=== PATIENT | male | born 1975 | race Caucasian/White ===

== ENCOUNTER 2019-11-26 14:24 | Outpatient (CLI) | payer OTHER ==
[2019-11-26] MEDS ORDERED: None per pt (14:47)
[2019-11-26 15:20] LABS: BASOPHILS # (AUTO) 0.06 x10^3/uL (0-0.1); BASOPHILS % (AUTO) 1 % (0-1); EOSINOPHILS # (AUTO) 0.28 x10^3/uL (0-0.4); EOSINOPHILS % (AUTO) 3 % (1-7); LYMPHOCYTES # (AUTO) 2.82 x10^3/uL (1-3.4); LYMPHOCYTES % (AUTO) 27 % (22-44); MD NO; MEAN CORPUSCULAR HEMOGLOBIN 30.6 pg (27.5-34.5); MEAN CORPUSCULAR HGB CONC 33.6 g/dL (33.2-36.2); MEAN PLATELET VOLUME 8.8 fL (7.4-10.4); MONOCYTES # (AUTO) 0.48 x10^3/uL (0.2-0.8); MONOCYTES % (AUTO) 5 % (2-9); NEUTROPHILS % (AUTO) 66 % (42-75); PLATELET COUNT 199 x10^3/uL (130-400); RED BLOOD COUNT 5.36 x10^6/uL (4.38-5.82); RED CELL DISTRIBUTION WIDTH 11.9 % (9.4-14.8)
[2019-11-26 15:27] LABS: ALANINE AMINOTRANSFERASE 50 U/L (12-78); ANION GAP 6 mmol/L (5-15); CHLORIDE 107 mmol/L (98-107); CREATININE 1.01 mg/dL (0.7-1.3)
[2019-11-26 15:29] LABS: ALKALINE PHOSPHATASE 87 U/L (45-117); BILIRUBIN,TOTAL 0.4 mg/dL (0.2-1.0); TOTAL PROTEIN 7.1 g/dL (6.4-8.2)
== END 2019-11-26 23:59 | disposition home or self-care (01) ==
LOC: STAR 14:24
PROVIDERS: ATTEND Surgery
DX: K40.90 Unilateral inguinal hernia, without obstruction or gangrene, not specified as recurrent (principal); Z01.818 Encounter for other preprocedural examination
CPT/HCPCS: 36415; 71046; 80053; 85025

== ENCOUNTER 2019-12-04 09:58 | Day surgery (SDC) | payer OTHER ==
[2019-11-26 14:47] VITALS: BP 110/80
[~2019-12-04] VITALS: Ht 182.9 cm; Wt 91.7 kg
[~2019-12-04 09:58] MED LIST: None per pt
[2019-12-04] MEDS ORDERED: LACTATED RINGERS 1,000 ML IV SCH (10:25)
[2019-12-04] MEDS ORDERED: LIDOCAINE-MPF 1%, 2ML ONE (10:26)
[2019-12-04] MEDS ORDERED: ACETAMINOPHEN 500 MG TABLET PO ONE (10:30)
[2019-12-04] MEDS ORDERED: DIAZEPAM 5 MG TABLET PO ONE (10:30)
[2019-12-04] MEDS ORDERED: GABAPENTIN 300 MG CAPSULE PO ONE (10:30)
[2019-12-04] MEDS ORDERED: ONDANSETRON ODT 8 MG PO ONE (10:30)
[2019-12-04] MEDS ORDERED: BUPIVACAINE/PF 0.5% ONE (10:51)
[2019-12-04] MEDS ORDERED: FENTANYL PF 250 MCG/5ML ONE (11:48)
[2019-12-04] MEDS ORDERED: PROPOFOL 50 ML ONE (11:48)
[2019-12-04] MEDS ORDERED: MIDAZOLAM 1 MG/ML, 2ML ONE (11:48)
[2019-12-04] MEDS ORDERED: DEXAMETHASONE 4 MG/ML, 1ML ONE (12:52)
[2019-12-04] MEDS ORDERED: ROCURONIUM 10MG/ML,5ML ONE (12:52)
[2019-12-04] MEDS ORDERED: ONDANSETRON 2MG/ML, 2ML ONE (12:52)
[2019-12-04] MEDS ORDERED: SUCCINYLCHOLINE 20 MG/ML, 10ML ONE (12:52)
[2019-12-04] MEDS ORDERED: PROPOFOL 10 MG/ML, 20ML ONE (12:53)
[2019-12-04] MEDS ORDERED: METOPROLOL 1 MG/ML, 5ML IV PRN (13:00)
[2019-12-04] MEDS ORDERED: MORPHINE SULFATE 4 MG/ML, 1ML IVPush PRN (13:00)
[2019-12-04] MEDS ORDERED: MEPERIDINE/PF 25MG/ML,1ML IVPush PRN (13:00)
[2019-12-04] MEDS ORDERED: DIAZEPAM 5 MG/ML, 2ML IVPush PRN (13:00)
[2019-12-04] MEDS ORDERED: hydrALAzine 20 MG/ML, 1ML IV PRN (13:00)
[2019-12-04] MEDS ORDERED: MIDAZOLAM 1 MG/ML, 2ML IV PRN (13:00)
[2019-12-04] MEDS ORDERED: EPHEDRINE 50 MG/ML, 1ML IM PRN (13:00)
[2019-12-04] MEDS ORDERED: ONDANSETRON ODT 8 MG PO PRN (13:00)
[2019-12-04] MEDS ORDERED: PROMETHAZINE 25 MG/ML, 1ML IV PRN (13:00)
[2019-12-04] MEDS ORDERED: DIPHENHYDRAMINE 50 MG/ML, 1ML IVPush PRN (13:00)
[2019-12-04] MEDS ORDERED: EPHEDRINE 50 MG/ML, 1ML IVPush PRN (13:00)
[2019-12-04] MEDS ORDERED: ONDANSETRON 2MG/ML, 2ML IV PRN (13:00)
[2019-12-04] MEDS ORDERED: FENTANYL PF 100 MCG/2ML ONE (14:12)
[2019-12-04] MEDS ORDERED: OXYcodone 5 MG/5 ML ORAL.SOL UDC ONE (14:12)
[2019-12-04] MEDS: FENTANYL PF 100 MCG/2ML IV PRN ×3 (14:17→14:34)
[2019-12-04] MEDS: OXYcodone 5 MG/5 ML ORAL.SOL UDC PO PRN ×2 (14:18→15:08)
[2019-12-04] MEDS ORDERED: IBUPROFEN 600 MG TABLET PO SCH (15:30)
[2019-12-04] MEDS ORDERED: KETOROLAC 30 MG/1 ML ONE (17:32)
[2019-12-04] MEDS ORDERED: CEFAZOLIN 1,000 MG ONE (17:32)
== END 2019-12-04 16:15 | disposition home or self-care (01) ==
LOC: OUT 09:58
PROVIDERS: ATTEND Surgery
DX: K40.90 Unilateral inguinal hernia, without obstruction or gangrene, not specified as recurrent (principal); F17.210 Nicotine dependence, cigarettes, uncomplicated
CPT/HCPCS: 49650; C1781; J0330; J0690; J1100; J1885; J2250; J2405; J2704; J3010; J7120; Q0162; S2900